=== PATIENT | male | born 1955 | race Caucasian/White ===

== ENCOUNTER → 2019-11-03 | Outpatient (CLI) | payer OTHER ==
--- NOTE | 2019-11-03 14:11 | Diagnostic Imaging Report ---
EXAMINATION: MRI of the lumbar spine without contrast HISTORY: Acute low back pain radiating to the right with weakness, worsening for the last 4 weeks COMPARISON: None. TECHNIQUE: Sagittal T1, T2, STIR; axial T2 and proton density. FINDINGS: It is assumed that there are 5 lumbar vertebrae. Curvature/Alignment: Mild thoracolumbar kyphosis. Normal lumbar lordosis. Vertebrae: No evidence of recent fracture, infection, or neoplasm. Shallow Schmorl nodes from T11 to L2. Minimal chronic anterior wedging of the T12 and L1 vertebral bodies. Conus: Normal, terminating at T12-L1 Cauda equina: Unremarkable. Lower thoracic: As above Paraspinal soft tissues: Small T2 hyperintense probable cyst in both kidneys, only partially visualized. Degenerative changes: L1-L2: Minimal symmetric disc bulge. No canal or foraminal stenoses L2-L3: Mild symmetric disc bulge and facet arthrosis. No canal or foraminal stenosis. L3-L4: Mild symmetric disc bulge and bilateral facet arthrosis. Minimal foraminal narrowing mainly on the right. No evidence of nerve root compression. L4-L5: Asymmetric left disc bulge, small left foraminal disc protrusion with underlying annular fissuring. Moderate facet arthropathy and ligamenta flava thickening. Moderate spinal canal and left foraminal narrowing. Minimal displacement of the exiting left L4 nerve root without definite compression. L5-S1: Moderate facet arthrosis. No spinal canal or foraminal stenoses. 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 IMPRESSION: 1. Moderate degenerative spinal canal and left foraminal stenoses at L4-5. 2. Mild multilevel degenerative changes of the disc and facet joints at the remaining levels without significant associated stenosis as detailed above. 3. 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 Signed by: Dr. Rubi Leija M.D. on 11/03/2019 2:08 PM
== END ==
LOC: MRI 12:56
PROVIDERS: ATTEND Family Medicine
DX: M54.42 Lumbago with sciatica, left side (principal)
CPT/HCPCS: 72148